=== PATIENT | male | born 1965 | race Caucasian/White ===

== ENCOUNTER 2024-11-28 20:58 | Emergency (ER) | payer OTHER ==
[~2024-11-28] VITALS: Ht 185.4 cm; Wt 98.9 kg
[2024-11-28 22:18] LABS: BASOPHILS # (AUTO) 0.1 K/UL (0.0-0.2); BASOPHILS % (AUTO) 1.2 % (0.0-2.0); EOSINOPHILS # (AUTO) 0.3 K/uL (0.0-0.7); EOSINOPHILS % (AUTO) 2.7 % (0.0-7.0); HEMATOCRIT 47.3 % (36.7-47.1); LYMPHOCYTES # (AUTO) 3.4 K/uL (0.8-4.8); LYMPHOCYTES % (AUTO) 33.1 % (20.5-51.5); MEAN CORPUSCULAR HEMOGLOBIN 32.4 uug (23.8-33.4); MEAN CORPUSCULAR HGB CONC 34 g/dL (32.5-36.3); MEAN CORPUSCULAR VOLUME 95.7 fL (73.0-96.2); MONOCYTES # (AUTO) 1.1 K/uL (0.1-1.30); MONOCYTES % (AUTO) 10.4 % (0.0-11.0); NEUTROPHILS # (AUTO) 5.4 K/uL (1.8-8.9); NEUTROPHILS % (AUTO) 52.6 % (38.5-71.5); PLATELET COUNT (AUTO) 291 K/uL (152-348); RED BLOOD CELL COUNT(AUTO) 4.95 MIL/uL (4.06-5.63); RED CELL DISTRIBUTION WIDTH 14.7 % (12.1-16.2); WHITE BLOOD COUNT (AUTO) 10.2 K/uL (3.6-10.2)
[2024-11-28 22:20] LABS: DIFFERENTIAL COMMENT 1
[2024-11-28 22:26] LABS: CREATININE 0.9 mg/dL (0.6-1.3); POTASSIUM 3.7 mmol/L (3.5-5.1)
[2024-11-28 22:38] LABS: ALBUMIN 3.3 g/dL (3.4-5.0); BILIRUBIN,TOTAL 0.3 mg/dL (0.2-1.0); TOTAL PROTEIN, SERUM 7.5 g/dL (6.4-8.2)
[2024-11-28 23:10] LABS: *BILIRUBIN,URIN NEGATIVE (NEGATIVE); *BLOOD, URINE NEGATIVE (NEGATIVE); *CLARITY,URINE CLEAR (CLEAR); *COLOR,URINE YELLOW (YELLOW); *KETONES,URINE NEGATIVE (NEGATIVE); *PROTEIN,URINE NEGATIVE (NEGATIVE); *UROBILINOGEN,URINE 0.2 E.U./dl (NORMAL); LEUKOCYTE ESTERASE ,URINE NEGATIVE (NEGATIVE); NITRITE, URINE NEGATIVE (NEGATIVE); UGLUCOSE NEGATIVE (NEGATIVE)
[2024-11-28 23:31] LABS: *AMPHETAMINE, URINE POSITIVE (NEGATIVE); *BARBITURATE, URINE NEGATIVE (NEGATIVE); *BENZODIAZEPINE, URINE POSITIVE (NEGATIVE); *CANNABINOID, URINE NEGATIVE (NEGATIVE); *COCCAINE, URINE NEGATIVE (NEGATIVE); *OPIATE, URINE POSITIVE (NEGATIVE); *PHENCYCLIDINE SCREEN,URINE NEGATIVE (NEGATIVE); FENTANYL, URINE NEGATIVE (NEGATIVE)
[2024-11-28] MEDS ORDERED: ONDANSETRON ODT 4 MG TAB.RAPDIS ONE (23:46)
[2024-11-28] MEDS ORDERED: HYDROMORPHONE 1 MG/1 ML DISP.SYRIN ONE (23:46)
[2024-11-28] MEDS: ONDANSETRON ODT 4 MG TAB.RAPDIS SL ONE (23:48)
[2024-11-28] MEDS: HYDROMORPHONE 1 MG/1 ML DISP.SYRIN IM ONE (23:49)
[2024-11-29] MEDS ORDERED: FURO20TA4 PO (02:09)
[2024-11-29] MEDS ORDERED: CLIN-118 PO (02:12)
[2024-11-29 03:35] VITALS: BP 149/105; O2SAT 96
== END 2024-11-29 03:50 | disposition home or self-care (01) ==
LOC: ER 21:02
DX: R60.0 Localized edema (principal); N43.3 Hydrocele, unspecified; L03.115 Cellulitis of right lower limb; R06.02 Shortness of breath; M79.605 Pain in left leg; M79.604 Pain in right leg; Z79.899 Other long term (current) drug therapy; Z87.2 Personal history of diseases of the skin and subcutaneous tissue
CPT/HCPCS: 99285; 74176; 93970; 71045; 80053; 81003; 83880; 85025; 87040; 84484; 36415; 76870; 93005; 96372; 80307; J1171; A4606; A4663; Q0162

== ENCOUNTER → 2024-12-04 | Emergency (ER) | payer OTHER ==
[~2024-12-04] VITALS: Ht 185.4 cm; Wt 98.9 kg
[~2024-12-04] MED LIST: CLIN-118 PO; FURO20TA4 PO; GABA300C PO; NAPR-1009 PO
[2024-12-04] MEDS: GABAPENTIN 300 MG CAPSULE PO ONE (04:52)
[2024-12-04] MEDS: KETOROLAC TROMETHAMINE 30 MG INJ IM ONE (04:53)
[2024-12-04 05:35] VITALS: BP 140/88; O2SAT 98
== END | disposition home or self-care (01) ==
LOC: ER 04:00
DX: G89.29 Other chronic pain (principal); M79.671 Pain in right foot; R03.0 Elevated blood-pressure reading, without diagnosis of hypertension; R60.0 Localized edema; L03.115 Cellulitis of right lower limb; I87.2 Venous insufficiency (chronic) (peripheral); Z79.899 Other long term (current) drug therapy; Z89.111 Acquired absence of right hand; Z87.2 Personal history of diseases of the skin and subcutaneous tissue
CPT/HCPCS: 99283; 96372; J1885; A4606; A4663